=== PATIENT | female | born 1960 | race Caucasian/White ===

== ENCOUNTER → 2025-06-30 | Outpatient (CLI) | payer MEDICARE, SELFPAY ==
--- NOTE | 2025-06-30 13:01 | NEURO_ITS ---
NCS and/or EMG Patient Report
--- NOTE | 2025-06-30 13:01 | NEURO ---
NCS and/or EMG Patient Report Ordering Doctor: Ruba Duarte NP DATE OF SERVICE: 06/30/25 Francoise presents for electrodiagnostic testing of the right lower limb. She reports pain radiating from the right buttock down the back of the leg. She reports intermittent numbness Electrodiagnostic findings: Right tibial motor nerve demonstrates normal distal latency amplitude and conduction velocity. Right peroneal motor nerve demonstrates normal distal latency with reduced amplitude (this response may be somewhat compromised by the patient's body habitus). Sensory responses are within normal limits. Normal tibial H reflex bilaterally. Needle EMG testing was performed in the right lower limb. All muscles tested showed no evidence of denervation with normal motor unit action potentials. Electrodiagnostic impression: This is a normal electrodiagnostic study of the right lower limb. There is no electrodiagnostic evidence for peripheral neuropathy or lumbosacral radiculopathy [facility] Codes Neurology Neurology Interp Codes: 70311-01 Musc test done w/n test comp (interp) and 15080-53 Nrv cndj tst 5-6 studies (interp)
== END | disposition home or self-care (01) ==
PROVIDERS: Referring Provider Nurse Practitioner Family; Visit Provider Nurse Practitioner Family
DX: G57.91 Unspecified mononeuropathy of right lower limb (principal)
CPT/HCPCS: 95886; 95910